=== PATIENT | male | born 1945 | race Caucasian/White ===

== ENCOUNTER → 2020-01-11 | Outpatient (CLI) | payer OTHER | LOC: OD 07:38 | PROVIDERS: ATTEND Otolaryngology | DX: J01.91 Acute recurrent sinusitis, unspecified (principal) | CPT/HCPCS: 36415; 82785; 86003 ==

== ENCOUNTER → 2020-01-12 | Outpatient (CLI) | payer OTHER ==
--- NOTE | 2020-01-16 17:14 | RADIOLOGY REPORT (SQ) ---
EXAM DESCRIPTION: CT SINUSES FOR ENT IMAGES COMPLETED DATE/TIME: 01/12/2020 7:51 am REASON FOR STUDY: ACUTE RECURRENT SINUSITIS, UNSPECIFIED J01.91 ACUTE RECURRENT SINUSITIS, UNSPECIF IED COMPARISON: None. TECHNIQUE: Noncontrast scanning through the paranasal sinuses using bone algorithm. Reconstructed MPR images reviewed. All images stored on PACS. Images acquired for image guided surgery. All CT scanners at this facility use dose modulation, iterative reconstruction, and/or weight based d osing when appropriate to reduce radiation dose to as low as reasonably achievable (ALARA). [facility]: Dose Right [facility]: CareDose [facility]: Dose Right [facility]: Teradose 4D [facility]: [employer] RADIATION DOSE: mGy. FINDINGS: NASAL PASSAGES: Clear. No polyps or masses. OSTEOMEATAL UNITS AND NASOFRONTAL DUCTS: Patent. MAXILLARY SINUSES: Well-pneumatized and clear. Maxillary sinus outlets are patent. ETHMOID SINUSES: Well-pneumatized and clear. SPHENOID SINUSES: Chronic appearing opacification of the left sphenoid sinus with internal dense insp issated and calcified material. No expansion. Right sphenoid sinus looks relatively patent. FRONTAL SINUSES: Well-pneumatized and clear. MASTOID AIR CELLS: Generally hypoplastic. ORBITS: Normal and symmetrical. NASAL SEPTUM: Deviation to the left. TEMPOROMANDIBULAR JOINTS: Normal. TURBINATES: No pneumatized turbinates. OTHER: No other significant findings. IMPRESSION: 1. Chronic left sphenoid sinus disease. 2. Deviated nasal septum. 3. No acute sinus changes appreciated. TECHNICAL DOCUMENTATION: JOB ID: [id number] Quality ID # [id number]: Final reports with documentation of one or more dose reduction techniques (e.g., Au tomated exposure control, adjustment of the mA and/or kV according to patient size, use of iterative reconstruction technique) 2010 [employer]- All Rights Reserved Reading location - IP/workstation name: [email or web address]
== END ==
LOC: RAD 07:27
PROVIDERS: ATTEND Otolaryngology
DX: J01.91 Acute recurrent sinusitis, unspecified (principal)
CPT/HCPCS: 70486

== ENCOUNTER → 2020-03-13 | Outpatient (CLI) | payer OTHER ==
--- NOTE | 2020-03-13 12:49 | RADIOLOGY REPORT (SQ) ---
EXAM DESCRIPTION: ELBOW LEFT >2 VIEWS IMAGES COMPLETED DATE/TIME: 03/13/2020 9:47 am REASON FOR STUDY: PAIN IN LEFT ELBOW M25.522 PAIN IN LEFT ELBOW COMPARISON: None. NUMBER OF VIEWS: Four views. TECHNIQUE: AP, lateral, and both oblique radiographic images acquired of the left elbow. LIMITATIONS: None. FINDINGS: MINERALIZATION: Diminished BONES: No acute fracture or dislocation. No worrisome bone lesions. Minimal osteophytosis. JOINT: No effusion. SOFT TISSUES: No soft tissue swelling. No foreign body. OTHER: No other significant finding. IMPRESSION: NEGATIVE STUDY OF THE LEFT ELBOW. NO RADIOGRAPHIC EVIDENCE OF ACUTE INJURY. TECHNICAL DOCUMENTATION: JOB ID: [id number] 2010 [employer]- All Rights Reserved Reading location - IP/workstation name: [email or web address]
== END ==
LOC: OD 09:28
PROVIDERS: ATTEND Nurse Practitioner Family
DX: M25.522 Pain in left elbow (principal)

== ENCOUNTER 2020-06-24 12:48 | Emergency (ER) | payer OTHER, MEDICARE ==
--- NOTE | 2020-06-24 13:22 | ER Document Report ---
ED Medical Screen (RME) - General Chief Complaint: Foreign Body in Eye Stated Complaint: EYE INJURY Time Seen by Provider: 06/24/20 13:20 Primary Care Provider: STACY PHAN FNP-C [Primary Care Provider] - Follow up as needed Notes: HPI: 75-year-old male who states he is up-to-date on his tetanus vaccination presenting for possible foreign body in the left eye under the upper lid. Patient was moving pavers dropped 1 and felt a piece of stone possibly flap and strike him in the eye. No visual loss. Complains of pain with blinking PHYSICAL EXAMINATION: No definitive foreign body noted on exam in triage. Possible small corneal abrasion left eye I have greeted and performed a rapid initial assessment of this patient. A comprehensive ED assessment and evaluation of the patient, analysis of test res ults and completion of medical decision making process will be conducted by an additional ED providers. - Related Data Allergies/Adverse Reactions: Qkblete-Kiu-Jxa Reductase Inhibitor Allergy (Verified 06/24/20 13:19) Physical Exam - Vital signs Vitals: Temp Pulse Resp BP Pulse Ox 97.7 F 80 18 140/71 H 98 06/24/20 12:58 06/24/20 12:58 06/24/20 12:58 06/24/20 12:58 06/24/20 12:58 Course - Vital Signs Vital signs: Temp Pulse Resp BP Pulse Ox 97.7 F 80 18 140/71 H 98 06/24/20 12:58 06/24/20 12:58 06/24/20 12:58 06/24/20 12:58 06/24/20 12:58 Doctor's Discharge - Discharge Referrals: STACY PHAN FNP-C [Primary Care Provider] - Follow up as needed
--- NOTE | 2020-06-24 14:14 | ER Document Report ---
ED General - General Chief Complaint: Foreign Body in Eye Stated Complaint: EYE INJURY Time Seen by Provider: 06/24/20 13:20 Primary Care Provider: STACY PHAN FNP-C [Primary Care Provider] - Follow up as needed Mode of Arrival: Ambulatory Information source: Patient Notes: Patient is a 75-year-old man that comes in today chief complaint of sensation of foreign body to the left eye. He was working with bricks this morning he states a piece of brick flew up and hit him in the left eye. He continues with a sensation of gravel under the left eyelid. He does not complain specifically of any loss of vision. Tetanus shot is up-to-date - Related Data Allergies/Adverse Reactions: Nckvctj-Ftm-Atl Reductase Inhibitor Allergy (Verified 06/24/20 13:19) Home Medications: crestor, ozempic, betaprostate Past Medical History - General Information source: Patient - Social History Smoking Status: Unknown if Ever Smoked Frequency of alcohol use: None Drug Abuse: None Family History: Reviewed & Not Pertinent Review of Systems - Review of Systems Notes: Constitutional: No fevers. No chills. EENT: No eye redness. No eye pain. No ear pain. No sore throat. Positive foreign body sensation left eye Cardiovascular: No chest pain. No palpitations. Respiratory: No cough. No shortness of breath. No respiratory distress. Gastrointestinal: No abdominal pain. No nausea, vomiting, or diarrhea. Genitourinary: Atraumatic. No lesions. No pain. No discharge. Musculoskeletal: Atraumatic. No swelling. No deformities. Skin: No rash or lesions. Lymphatic: No swollen lymph nodes. Neurologic: No headache. No syncope. Psychiatric: No suicidal or homicidal ideation. Physical Exam - Vital signs Vitals: Temp Pulse Resp BP Pulse Ox 97.7 F 80 18 140/71 H 98 06/24/20 12:58 06/24/20 12:58 06/24/20 12:58 06/24/20 12:58 06/24/20 12:58 - Notes Notes: General: Well-developed, well-nourished. In no acute distress. Non-toxic appearing. Cardiac: Well-perfused. Regular rate and rhythm. No murmurs, rubs, or gallops. Pulmonary: No respiratory distress. No cyanosis. Bilateral lung fiels are clear to auscultation. Abdominal: Non-distended. Non-rigid. Bowels sounds are present in all four quadrants. No guarding or rebound. HEENT: Head is atraumatic. Conjunctivae not reddened. No tearing. PERRL. EOMI. Orbits atraumatic. No periorbital swelling or erythema. Oropharynx is without erythema, swelling, or exudates. There is a small skin tear at the medial canthus of the left eye. The globe itself otherwise looks atraumatic. No periorbital swelling. EOMI. 1 drop of tetracaine applied to the left eye. Fluorescein stain applied. There is a moderate sized corneal abrasion at the 11 o'clock position. There is no corneal foreign bodies. No dendrites. No lacerations. Left upper eyelid is everted and there is a small speck of brown material successfully removed with Q-tip. Visual acuity as noted Neck: Supple. No adenopathy. No meningismus. Dermatologic: Warm with good turgor. No rash. Atraumatic. Chest: Atraumatic. No chest wall tenderness to palpation. Musculoskeletal: Moves all extremities well. No range of motion deficits. no muscular or joint tenderness. No paraspinal muscle tenderness. no midline spinal tenderness or step-off. Genitourinary: Examination deferred Neurologic: No gross neurologic deficits. Psychiatric: Normal mood. Course - Re-evaluation Re-evalutation: 06/24/20 14:14 Patient is still pending visual acuity check and eye tray for more thorough investigation. - Vital Signs Vital signs: Temp Pulse Resp BP Pulse Ox 97.7 F 80 18 140/71 H 98 06/24/20 13:17 06/24/20 12:58 06/24/20 12:58 06/24/20 12:58 06/24/20 12:58 Procedures - Eye Procedure Left Time completed: 15:21 Eye Irrigated w/ Saline (ccs): 15 Foreign body removal: Left - Small speck of brown sand or gravel under left upper eyelid Alcaine Drops Administered: Yes Fluorescein applied: Left Slit lamp used: No Eyes picture: 1 - corneal abrasion Discharge - Discharge Clinical Impression: Foreign body of eyelid, left Left corneal abrasion Qualifiers: Encounter type: initial encounter Qualified Code(s): S05.02XA - Injury of conjunctiva and corneal abrasion without foreign body, left eye, initial encounter Condition: Good Disposition: HOME, SELF-CARE Instructions: Conjunctival Foreign Body ([facility]) Additional Instructions: You may follow-up with an general laborer or lan/wan engineer of your choice. Recommend that you have this lesion rechecked in 2 days by your doctor or by an drug discovery informatics specialist. Prescriptions: Polymyxin B Sulf/Trimethoprim [Polytrim Eye Drops] 1 drop OS QID 5 Days #1 bottle Referrals: STACY PHAN, RESTAURANT MANAGER-C [Primary Care Provider] - 06/26/20
[2020-06-24] MEDS ORDERED: TETRACAINE HCL 0.5% OPH SOLN 4 ML OS ONE (15:00)
[2020-06-24 15:55] VITALS: BP 143/73
== END 2020-06-24 15:50 | disposition home or self-care (01) ==
LOC: ER 12:48
DX: T15.82XA Foreign body in other and multiple parts of external eye, left eye, initial encounter (principal); W20.8XXA Other cause of strike by thrown, projected or falling object, initial encounter; Y99.0 Civilian activity done for income or pay
CPT/HCPCS: 99283; J3490